=== PATIENT | female | born 1975 | race Caucasian/White ===

== ENCOUNTER 2018-05-29 05:36 | Day surgery (SDC) | payer BC ==
[~2018-05-29] VITALS: Ht 160 cm; Wt 78.0 kg
--- NOTE | ~2018-05-29 | PATH ---
[facility] [address] [place] [address] PATHOLOGY RPT PROCEDURE Name: CHIARA HOUSE Room #: DEP [facility].#: [id number] Admission: 05/29/18 Date of : 71 Discharge: 05/29/18 Report #: [id number] Path Case #: [id number] [facility] Accession Number: [id number] . 01 Material submitted: . GALLBLADDER . 01 Clinical history: . Gallstone . 02 Diagnosis: Gallbladder, cholecystectomy: - Mild chronic cholecystitis. - Cholelithiasis. (IUV:dwight; 05/30/2018) QMS/05/31/2018 . 02 Electronically signed: . Yajaira Murphy MD, Pathologist NPI- [id number] . 01 Gross description: . The specimen is received in formalin, labeled "House, Chiara and gallbladder", is a distended 7.5 x 2.0 x 1.7 cm gallbladder. The serosa is wilson-purple. Opening the gallbladder reveals the lumen filled with yellow-green viscous bile and multiple bosselated yellow calculi measuring 2.5 x 2.2 x 0.7 cm in aggregate. The mucosa has several effaced areas with the remaining wilson-yellow. The gallbladder wall is 0.1 cm thick. No discrete masses are identified. Geriatric Social Worker sections are submitted in A1. ([facility]; 05/29/2018) [facility] . 02 Pathologist provided ICD-10: K80.10 . 02 CPT . 726203 Performed at: [address], [place], [place] [id number] MD Dave Abreu MD Phone: [phone] Performed at: [address] [id number] MD Yajaira Murphy MD Phone: [phone]
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
--- NOTE | ~2018-05-29 | O ---
[facility] [place] [address] OPERATIVE REPORT Name: CELIA BONILLA Room #: DEP [facility]#: [id number] Admission: 05/29/18 Attend Phys: James Rasmussen MD Discharge: 05/29/18 Date of : 71 Report #: [id number] THIS REPORT FOR: //name// CC: Jeniffer Rasmussen DATE OF SERVICE: 05/29/[address] James Rasmussen and Dr. Jeniffer Ma. PREOPERATIVE DIAGNOSES: Cholelithiasis, cholecystitis, biliary colic. POSTOPERATIVE DIAGNOSES: Cholelithiasis, cholecystitis, biliary colic. PROCEDURE: Laparoscopic cholecystectomy. SURGEON: James Rasmussen MD EDUCATION REVIEWER: China Cuevas RN. ANESTHESIA: General. DESCRIPTION OF PROCEDURE: The patient was brought to the operating room and placed on the operative table in the supine position. Sequential compression devices were in place for DVT prophylaxis. She was given appropriate preoperative dose of antibiotics. The patient underwent a general endotracheal anesthesia and the abdomen was then prepped and draped in a sterile fashion. Skin and subcutaneous tissue around the umbilicus was then infiltrated with 0.5% Marcaine. An infraumbilical skin incision was then performed using #11 scalpel blade. Hemostasis obtained using electrocautery. Dissection was carried down through subcutaneous tissue and the fascia, which was then grasped between 2 Rika clamps and incised with curved Cordoba scissors. Peritoneum was entered and a pursestring suture of 0 Vicryl was then placed in the fascia. A 12 mm disposable Ilan port was then inserted through the opening and held into place with the balloon port and the pursestring suture. Pneumoperitoneum was obtained to a level of 10-15 mmHg. The laparoscope was inserted through this port and exploration was performed, which revealed a slightly dilated gallbladder with some stones. There were no other intra-abdominal abnormalities. Two lateral 5 mm Surgiport as well as an upper midline 11 mm Surgiport were all inserted under direct visualization after infiltration with 0.5% Marcaine. The gallbladder was then grasped and retracted superiorly and the cystic duct and artery were carefully dissected free. The cystic common bile duct junction was clearly identified and the cystic duct was then quadruply clipped on the common bile duct side and doubly clipped on the gallbladder side and divided with the scissors. The artery was doubly clipped on each side and divided with the [facility] [address] [place] [address] OPERATIVE REPORT Name: CELIA BONILLA [id number] Admission: 05/29/18 Attend Phys: James Rasmussen MD Discharge: 05/29/18 Date of : 71 Report #: [id number] scissors. There was a posterior branch, which was dissected free, doubly clipped on each side and also divided with the scissors. The gallbladder was then dissected free from the bed using the hook electrocautery. Prior to completing the dissection, the gallbladder was retracted superiorly and the bed inspected for hemostasis, which was found to be intact. The gallbladder was then transected and brought out through the periumbilical port and sent as specimen to pathology. The port was then returned to the abdomen. The area was then copiously irrigated with warm saline solution, which was suctioned free and hemostasis was checked and found to be intact. The ports were then all removed under direct visualization, hemostasis intact at each port site. Pneumoperitoneum was released and the periumbilical port was then also removed under direct visualization, hemostasis intact at that port site as well. Periumbilical fascia was then closed using the 0 Vicryl pursestring suture. Skin was then closed using interrupted vertical mattress 5-0 nylon sutures and the wound was dressed with Band-Aids. The patient was then awakened from the general endotracheal anesthesia, extubated and taken to the recovery room in good condition. Estimated blood loss was approximately 5 mL and the patient tolerated the procedure well. All sponge, lap and instrument counts correct x 2. <ELECTRONICALLY SIGNED> By: James Rasmussen MD 05/31/18 1331 1135 1339 James Rasmussen MD /nt
[~2018-05-29 05:36] MED LIST: SYNTHROID75 MCG PO
[2018-05-29 06:41] VITALS: BP 115/77
[2018-05-29] MEDS ORDERED: NORCO 5-325 TA1 EACH PO (11:39)
[2018-05-29 11:47] VITALS: BP 115/77
== END 2018-05-29 12:00 | disposition home or self-care (01) ==
LOC: OR 05:36 → TBA 05:37 → OR 10:40
DX: K80.64 Calculus of gallbladder and bile duct with chronic cholecystitis without obstruction (principal); E03.9 Hypothyroidism, unspecified; L43.9 Lichen planus, unspecified; F17.210 Nicotine dependence, cigarettes, uncomplicated; Z98.890 Other specified postprocedural states; Z79.82 Long term (current) use of aspirin; Z79.899 Other long term (current) drug therapy; Z88.8 Allergy status to other drugs, medicaments and biological substances; Z87.19 Personal history of other diseases of the digestive system
CPT/HCPCS: 50010; 50101; 50411; 50555; 50558; 51474; 51489; 52266; 53314; 56462; 56524; 56528; 62110; 62900; 70005